=== PATIENT | female | born 1990 | race Caucasian/White ===

== ENCOUNTER 2020-02-01 17:01 | Emergency (ER) | payer SELFPAY ==
[2020-02-01] MEDS ORDERED: methylPREDNISolone Sodium Succinate 125 MG/2 ML SDV IVPUSH ONE (17:10)
[2020-02-01] MEDS ORDERED: diphenhydrAMINE 50 MG Cap PO ONE (17:10)
[2020-02-01] MEDS ORDERED: Sodium Chloride 0.9% 1,000 ML IV ONE (17:11)
--- NOTE | 2020-02-01 17:15 | EDM.PDOC ---
ED HPI GENERAL MEDICAL PROBLEM - General Chief Complaint: Allergic Reaction Stated Complaint: ALLERGIC REACTION TO BEE STING Time Seen by Provider: 02/01/20 17:06 Source of Information: Reports: Patient History Limitations: Reports: No Limitations - History of Present Illness INITIAL COMMENTS - FREE TEXT/NARRATIVE: HISTORY AND PHYSICAL: History of present illness: Patient is a 29-year-old female who presents to the emergency room with complaints of a bee sting to the bottom of her left foot. This occurred approximately 20 minutes prior to arrival, states she came straight to the emergency room for evaluation. Her last bee sting was approximately 17 years ago where she did have an anaphylactic reaction. Currently she feels "funny" and slight tingling in her lips -did not take any medications prior to arrival. Patient denies any fever, chills, headache, change in vision, syncope or near syncope. Denies any drooling, difficulty swallowing, sensation of throat/chest tightness, chest pain, back pain, shortness of breath or cough. Denies any abdominal pain, nausea, vomiting, diarrhea, constipation or dysuria. Denies any chance of . Patient has been eating and drinking appropriately. Review of systems: As per history of present illness and below otherwise all systems reviewed and negative. Past medical history: As per history of present illness and as reviewed below otherwise noncontributory. Surgical history: As per history of present illness and as reviewed below otherwise noncontributory. Social history: See social history for further information Family history: As per history of present illness and as reviewed below otherwise noncontributory. Physical exam: General: Well-developed and well-nourished 29-year-old female. Alert and oriented. Nontoxic-appearing and in no acute distress. HEENT: Atraumatic, normocephalic, pupils equal and reactive bilaterally, negative for conjunctival pallor or scleral icterus, mucous membranes moist, TMs normal bilaterally, throat clear, neck supple, nontender, trachea midline. No drooling or trismus noted. No meningeal signs. No hot potato voice noted. Lungs: Clear to auscultation, breath sounds equal bilaterally, chest nontender. Heart: S1S2, regular rate and rhythm without overt murmur Abdomen: Soft, nondistended, nontender. Negative for masses or hepatosplenomegaly. Negative for costovertebral tenderness. Skin: Pinpoint puncture site noted to bottom of right foot. No surrouding redness or erythema. Otherwise skin is intact, warm, dry. No lesions or rashes noted. Extremities: Moves all extremities per self without difficulty or deficits, negative for cords or calf pain. Neurovascular unremarkable. Neuro: Awake, alert, oriented. Cranial nerves II through XII unremarkable. Ce rebellum unremarkable. Motor and sensory unremarkable throughout. Exam nonfocal. Notes: Patient was watched for over an hour, she is asymptomatic and VSS. She states she feels "much better". We discussed signs and symptoms that would prompt her to return to the ED. Follow up, medication and supportive care measures were reviewed and discussed. Voices understanding and is agreeable to plan of care. Denies any further questions or concerns at this time. Diagnostics: None Therapeutics: NS, Benadryl, Solu-Medrol Prescription: Epi-Pen Impression: Allergic reaction Plan: 1. Keep the puncture site clean and dry. Continue to monitor your symptoms closely. 2. While symptomatic continue to routinely take Benadryl 50mg every 4-6 hours and Zantac 150mg twice daily. Take the Medrol dose pack as prescribed. 3. Carry your Epi-Pen with you at all times. Use in the case of an emergency and call 911 and/or present to the ER. 4. You may use topical calamine lotion, cool tempid oatmeal baths, Aveeno bath/lotions (for symptomatic relief as needed). 5. Please follow up with your Primary care doctor as needed. Return to the ED as needed and as discussed. Definitive disposition and diagnosis as appropriate pending reevaluation and review of above. 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 [No Known Home Meds] 02/01/20 [History] ED ROS ALLERGIC REACTION - Review of Systems Review Of Systems: Comprehensive ROS is negative, except as noted in HPI. ED EXAM GENERAL NO PERIP PULSE - Physical Exam Exam: See Below (See dictation) Course - Vital Signs Last Recorded V/S: Last Vital Signs Temp 97.0 F 02/01/20 17:11 Pulse 76 02/01/20 17:11 Resp 15 02/01/20 17:11 BP 135/82 02/01/20 17:11 Pulse Ox 100 02/01/20 17:11 - Orders/Labs/Meds Meds: Medications Discontinued Medications Generic Name Dose Route Start Last Admin Trade Name Bjorn PRN Reason Stop Dose Admin Diphenhydramine HCl 50 mg 02/01/20 17:10 02/01/20 17:27 Benadryl PO 02/01/20 17:11 50 mg ONETIME ONE Administration Sodium Chloride 1,000 mls @ 999 mls/hr 02/01/20 17:11 02/01/20 17:27 Normal Saline IV 02/01/20 18:11 999 mls/hr STAT ONE Administration Methylprednisolone Sodium Succinate 125 mg 02/01/20 17:10 02/01/20 17:27 Solu-Medrol IVPUSH 02/01/20 17:11 125 mg ONETIME ONE Administration Departure - Departure Time of Disposition: 18:13 Disposition: Home, Self-Care 01 Clinical Impression: Allergic reaction Qualifiers: Encounter type: initial encounter Qualified Code(s): T78.40XA - Allergy, unspecified, initial encounter - Discharge Information Instructions: Allergies, Adult, [id number] Referrals: PCP,None [Primary Care Provider] - Additional Instructions: The following information is given to patients seen in the emergency department who are being discharged to home. This information is to outline your options for follow-up care. We provide all patients seen in our emergency department with a follow-up referral. The need for follow-up, as well as the timing and circumstances, are variable depending upon the specifics of your emergency department visit. If you don't have a primary care physician on staff, we will provide you with a referral. We always advise you to contact your personal physician following an emergency department visit to inform them of the circumstance of the visit and for follow-up with them and/or the need for any referrals to a consulting specialist. The emergency department will also refer you to a specialist when appropriate. This referral assures that you have the opportunity for follow-up care with a specialist. All of these measure are taken in an effort to provide you with optimal care, which includes your follow-up. Under all circumstances we always encourage you to contact your private physician who remains a resource for coordinating your care. When calling for follow-up care, please make the office aware that this follow-up is from your recent emergency room visit. If for any reason you are refused follow-up, please contact the [facility] Emergency Department at and asked to speak to the emergency department charge nurse. [facility] [address] [place] [id number] [facility] [address] [place] [phone] Thank you for choosing the [facility] emergency department in [place] for your medical needs today. It was a pleasure caring for you. You were seen in the emergency department for allergic reaction/bee sting. 1. Keep the bee sting site clean and dry. Continue to monitor your symptoms closely. 2. While symptomatic continue to routinely take Benadryl 50mg every 4-6 hours and Zantac 150mg twice daily. Take the Medrol dose pack as prescribed. 3. Carry your Epi-Pen with you at all times. Use in the case of an emergency and call 911 and/or present to the ER. 4. You may use topical calamine lotion, cool tempid oatmeal baths, Aveeno bath/lotions (for symptomatic relief as needed). 5. Please follow up with your Primary care doctor as needed. Return to the ED as needed and as discussed. Sepsis Event Note (ED) - Focused Exam Vital Signs: Vital Signs Temp Pulse Resp BP Pulse Ox 02/01/20 17:11 97.0 F 76 15 135/82 100
== END 2020-02-01 18:24 | disposition home or self-care (01) ==
LOC: MW.ED 17:01
DX: T63.441A Toxic effect of venom of bees, accidental (unintentional), initial encounter (principal); Z91.010 Allergy to peanuts; Z88.0 Allergy status to penicillin; Z91.030 Bee allergy status
CPT/HCPCS: 96374; 99283; A9270; J2930; J7030; 99282